=== PATIENT | male | born 1940 | race Caucasian/White ===

== ENCOUNTER 2024-02-12 16:57 | Emergency (ER) | payer MEDICARE, BC, SELFPAY ==
[2024-02-12 17:00] VITALS: BP 134/64
--- NOTE | 2024-02-12 17:51 | ED.GENMED ---
History of Present Illness
General
Chief Complaint: Abdominal Symptoms
Source: patient
Time Seen by Provider: 02/12/24 17:37
History of Present Illness
History of Present Illness:
83yoM with no known medical history presenting with his for evaluation of vomiting. He was doing yard work 2 nights ago and was outside in the heat for about 2 hours. He started to feel unwell later that evening. He started vomiting yesterday
and has been vomiting persistently since then. He estimates that he has vomited about 5-6x today. He is feeling generally weak and dehydrated. He tried an OTC antiemetic without improvement. He denies any fevers, abdominal pain, diarrhea, chest
pain, shortness of breath. He has not seen a PCP in about 2 years.
Past History
Past History
ED Past Medical History: None
ED Past Surgical History: None
Phy Exam
General Physical Exam
General Presentation: well appearing and no apparent distress
General age: appears stated age
General Skin: warm and dry
General Habitus: normal and elderly
General Mental: alert
Cardiovascular Exam
Cardiovascular Exam: regular rate/rhythm and no murmur
Pulmonary Exam
Pulmonary Exam: lungs clear, no respiratory distress, no rales, no crackles and no rhonchi
Gastrointestinal Exam
Gastrointestinal Exam: non tender, soft and non distended
Skin Exam
Skin Exam: normal color and warm/dry
Psychiatric Exam
Psychiatric Exam: normal mood/affect
Course
Orders/Labs/Results
Orders:
Orders
02/12/24 17:50
Electrocardiogram (*1) Urgent
Reason for Study: Other
Other Reason for Exam: Vomiting
EKG- Treatment ONCE
0.9% Sodium Chloride 1000 ml [Nss] 1,000 ml IV BOLUS
Ondansetron Injectable [Zofran] 4 mg IV NOW STA
02/12/24 17:54
Complete Blood Count/With Diff Urgent
Comprehensive Metabolic Panel Urgent
Lipase Urgent
Magnesium Urgent
Troponin I Urgent
Abnormal Lab Results
02/12/24
17:54
RBC 4.18 L 10^6/uL
(4.70-6.10)
Hct 36.6 L %
(39.0-52.0)
MCH 31.3 H pg
(27.0-31.0)
Absolute Lymphs (auto) 0.4 L 10^3/uL
(1.2-3.4)
Neutrophils % 86.1 H %
(42.2-75.2)
Lymphocytes % 7.2 L %
(20.5-51.1)
Sodium 133 L mmol/L
(135-145)
Chloride 97 L mmol/L
(98-107)
Carbon Dioxide 31 H mmol/L
(22-30)
Glucose 127 H mg/dl
(70-99)
02/12/24 17:54
02/12/24 17:54
Vital Signs
Initial and Last Documented VS:
Initial Vital Signs
Temp Pulse Resp BP Pulse Ox
99.1 F 76 16 134/64 97
02/12/24 17:00 02/12/24 17:00 02/12/24 17:00 02/12/24 17:00 02/12/24 17:00
Last Documented Vital Signs
Temp Pulse Resp BP Pulse Ox
99.5 F 57 14 118/66 97
02/12/24 19:05 02/12/24 20:00 02/12/24 19:05 02/12/24 20:00 02/12/24 20:00
MDM/Problems Addressed
Differential Diagnosis Includes:
83yoM here with vomiting x 1 day. Started after working in the heat 2 days ago. Patient c/o feeling dehydrated. No abdominal pain or fevers. No CP/SOB. He is afebrile and hemodynamically stable. He is well appearing in no distress. Abdominal exam is
benign. Differential diagnosis includes but is not limited to: heat exhaustion, gastroenteritis, dehydration, electrolyte abnormality
Initial ED plan: Check abdominal labs, troponin, and EKG. IV Zofran and fluid bolus for symptoms.
*EKG
EKG Intrepretation Date: 02/12/24
Heart Rate: 63
Rate: normal
Rhythm: sinus and PAC's
[place]: normal axis
QRS Pattern: normal QRS
Ischemia: no ischemia
*Critical Care Note
Total Time (30-74mins, 75-104mins- exclusive of procedures): Not Applicable
Update Note
Update Note:
Labs reveal a sodium of 133 and a chloride of 97 consistent with mild dehydration. Renal function is normal. White count WNL. No ischemic changes on EKG and troponin is normal. Patient feeling significantly improved on reassessment. Patient able to
tolerate PO fluids without any further vomiting. Vital signs remain stable and he feels comfortable with discharge. Script for Zofran provided and supportive care discussed. Advised f/u with PCP and return to the ED with any worsening symptoms.
Patient discharged in stable condition.
ED Attending Note
-
Portions of this chart may have been created with voice recognition software.� Occasional wrong word or��sound alike� substitutions may have occurred due to the inherent limitations of voice recognition software.
Discharge Plan
Departure
Patient Disposition: Home (Routine Discharge)
Date of Disposition: 02/12/24
Time of Disposition: 20:06
Patient with high blood pressure during this ER visit?: No
Discharge Problem:
Nausea and vomiting
Instructions: Nausea and Vomiting, Adult (DC)
Prescriptions:
New
ondansetron 4 mg tablet,disintegrating
4 mg PO Q6H PRN (Reason: nausea and vomiting) Qty: 20 0RF
No Action
multivitamin Tablet
1 tab PO DAILY
Metamucil Packet
1 packet PO DAILY
ascorbic acid (vitamin C) [Vitamin C] 500 mg Tablet
500 mg PO DAILY
Fish Oil Capsule
1,000 mg PO DAILY
Referrals:
Evert Tong MD [Family Provider] -
Activity Restrictions/Additional Instructions:
Take Zofran as needed for nausea. Drink plenty of fluids and eat a bland diet (bananas, rice, applesauce, toast).
Please follow-up with your family doctor. Return to the ER with any worsening symptoms.
Interventions
Interventions:
*Risk Screen - Suicide Last Done: 02/12/24 17:00
*General Assessment Last Done: 02/12/24 18:16
*Neglect/Abuse Screening Last Done: 02/12/24 17:00
ED- Fall Risk Assessment Last Done: 02/12/24 18:38
*ED COVID-19 Vaccine History Last Done: 02/12/24 18:38
*Nursing Disposition Last Done: 02/12/24 20:25
BG-Lzytfk-Zaigggcbao Assessment Last Done: 02/12/24 18:02
Discharge Date and Time
Discharge Date/Time: 02/12/24 20:25
Print Language: CROATIAN
[2024-02-12] MEDS: ZOFRAN 4 MG IV (18:00)
[2024-02-12 18:01] VITALS: BMI 21.5
[2024-02-12] MEDS: NSS 1000 IV (18:01)
[2024-02-12 18:06] LABS: % Basophils 0.7 % (0-2); % Immature Granulocytes 0.3 % (0-0.5); % Lymphocytes 7.2 % (20.5-51.1); % Monocytes 5.7 % (1.7-9.3); % Neutrophils 86.1 % (42.2-75.2); Absolute Lymphocytes 0.4 10^3/uL (1.2-3.4); Absolute Monocytes 0.4 10^3/uL (0.1-0.6); Absolute Neutrophils 5.3 10^3/uL (1.4-6.5); Hematocrit 36.6 % (39.0-52.0); Hemoglobin 13.1 g/dL (13.0-18.0); Mean Corp Hgb Conc. 35.8 g/dL (33.0-37.0); Mean Corpuscular Hgb 31.3 pg (27.0-31.0); Mean Corpuscular Volume 87.6 fL (80.0-94.0); Mean Platelet Volume 8.7 fL (7.4-10.4); Nucleated Red Blood Cells % 0 % (-); Platelet Count 178 10^3/uL (130-400); Red Blood Cell Count 4.18 10^6/uL (4.70-6.10); Red Cell Dist. Width 12.4 % (11.5-14.5); White Blood Cell Count 6.1 10^3/uL (4.8-10.8)
[2024-02-12 18:22] LABS: ALT (SGPT) 35 U/L (0-50); AST (SGOT) 57 U/L (17-59); Albumin 4.3 g/dl (3.5-5.0); Alkaline Phosphatase 83 U/L (38-126); Blood Urea Nitrogen 15 mg/dl (9-20); Calcium 8.9 mg/dl (8.4-10.2); Carbon Dioxide 31 mmol/L (22-30); Chloride 97 mmol/L (98-107); Estimated Creatinine Clearance 69 ml/min; Glucose 127 mg/dl (70-99); Lipase 99 U/L (23-300); Magnesium 1.9 mg/dl (1.6-2.3); Potassium 4.2 mmol/L (3.5-5.1); Sodium 133 mmol/L (135-145); Total Bilirubin 0.5 mg/dl (0.2-1.3); Total Protein 6.9 g/dl (6.3-8.2); eGFR > 60.00
[2024-02-12 18:32] LABS: Troponin I < 0.012 ng/ml
[2024-02-12 19:05] VITALS: BP 114/69
[2024-02-12 20:00] VITALS: BP 118/66
== END 2024-02-12 20:25 | disposition home or self-care (01) ==
LOC: EMR 16:57
PROVIDERS: Physician Assistant; EMERGENCY PHYSICIAN Emergency Medicine; FAMILY PHYSICIAN Family Medicine
DX: R11.2 Nausea with vomiting, unspecified (principal)
CPT/HCPCS: 99284; 96374; 96361; 80053; 83690; 83735; 84484; 85025; 93005

== ENCOUNTER → 2024-05-30 06:21 | Day surgery (SDC) | payer MEDICARE, BC, SELFPAY | LOC: GI 06:21 | PROVIDERS: ATTENDING PHYSICIAN Internal Medicine Gastroenterology | DX: Z12.11 Encounter for screening for malignant neoplasm of colon (principal); K64.8 Other hemorrhoids; K63.89 Other specified diseases of intestine; Z86.0100 Personal history of colon polyps, unspecified; D12.3 Benign neoplasm of transverse colon | CPT/HCPCS: 45385; 88305 ==